=== PATIENT | male | born 1950 | race Caucasian/White ===

== ENCOUNTER 2020-10-09 09:08 | Outpatient (CLI) | payer MEDICARE, OTHER, SELFPAY ==
--- NOTE | ~2020-10-09 | US_ITS ---
EXAMINATION: [facility] EXAM DATE: 10/09/2020 09:40 INDICATION: Z13.6 - Encounter for screening for cardiovascular disorders. TECHNIQUE: Multiple grayscale and Doppler images of the abdominal aorta were obtained (by a technolog ist who performed the scan) and subsequently reviewed. There is no prior study for comparison. FINDINGS: The abdominal aorta is normal in caliber as are the iliac arteries. There is mild scattered arteriosc lerotic disease. No evidence of retroperitoneal lymphadenopathy. IMPRESSION: Mild abdominal aortic arteriosclerosis. Normal caliber. Reviewed, dictated and finalized at location A.
== END 2020-10-09 09:09 | disposition home or self-care (01) ==
LOC: ANHIMG 09:09
PROVIDERS: PCP Family Medicine; Visit Provider Family Medicine
DX: Z13.6 Encounter for screening for cardiovascular disorders (principal)
CPT/HCPCS: 76706

== ENCOUNTER → 2021-08-14 13:52 | Outpatient (CLI) | payer MEDICARE, SELFPAY ==
--- NOTE | ~2021-08-14 | XR_ITS ---
EXAMINATION: XR knee LT 3V EXAM DATE: 08/14/2021 14:18 INDICATION: M25.562 - Pain in left knee. TECHNIQUE: Three projections of the left knee. There is no prior study for comparison. FINDINGS: No evidence osteochondral defect or joint body in the left knee joint. Segment dictated patella versus old chronic superolateral patellar fracture (less likely). Small joint effusion. Dense SFA, popliteal arterial sclerosis. Mild tricompartmental left knee osteoarthritis. IMPRESSION: Small left knee joint effusion. Chronic findings above. Reviewed, dictated and finalized at location G.
== END ==
PROVIDERS: Visit Provider Family Medicine
DX: M17.12 Unilateral primary osteoarthritis, left knee (principal); M25.462 Effusion, left knee
CPT/HCPCS: 73562

== ENCOUNTER 2021-12-18 23:25 | Emergency (ER) | payer MEDICARE, SELFPAY ==
--- NOTE | ~2021-12-18 | CT_ITS ---
EXAMINATION: CT abdomen pelvis w con DATE: 12/19/2021 00:43 INDICATION: Periumbilical abdominal pain with nausea and vomiting TECHNIQUE: Computed tomography (CT) of the abdomen and pelvis was performed with 100 mL Omnipaque-300 intravenous contrast. Automated exposure control and iterative reconstruction technique were employe d. The dose-length product was 1277.63 mGy-cm. COMPARISON: 09/02/2014 FINDINGS: Mild emphysema and mild dependent atelectasis in the bilateral lung bases. Calcite left lower lobe no dules and calcified left hilar lymph nodes consistent with old granulomatous disease. A few prominent but still normal-sized bilateral hilar lymph nodes which are likely reactive. Mild cardiomegaly. Ath erosclerotic coronary artery calcifications and change of prior median sternotomy and coronary artery bypass grafting. No pericardial effusion. There is fluid within the distal esophagus extending into a small sliding-type hiatal hernia suggesting reflux. There is some wall thickening the distal esopha jeff consistent with esophagitis likely related to reported vomiting. There is a gastric ring finger o n the stomach just below the anupam of the diaphragm. 2.5 cm calcified gallstone within the partially d ecompressed gallbladder. Liver, spleen, pancreas and bilateral adrenal glands are normal. There are a couple 1-2 mm nonobstructing left renal stones. No hydronephrosis. Right kidney is normal. Bladder i s normal. Normal appendix. Postoperative change of prior ventral hernia mesh repair. There is mild co lonic diverticulosis with a sigmoid and descending colon predominance. There is no adjacent inflamma tory change to suggest diverticulitis. There are few fluid-filled but not frankly dilated loops of sm all bowel in the central and lower abdomen. This extends to a transition point along the ventral alvin ia mesh repair between a loop filled with pseudo feces suggesting delayed transit and the more distal decompressed small bowel. There is calcified atherosclerosis of the aorta and many of the other chelo ariadna. No free intraperitoneal gas or fluid. No pathologically enlarged abdominal or pelvic lymphadeno peri. Small fat-containing right inguinal hernia. Moderate left and mild to moderate right hip osteo arthritis. Small region of osteonecrosis at the anterosuperior left femoral head. IMPRESSION: 1. Fluid-filled but not likely dilated small bowel with scattered feces noted transition point to dec ompressed bowel which suggests either early or partial small bowel obstruction. 2. Small sliding-type hiatal hernia extending cephalad to a gastric ring positioned just below the le adriana of the anupam of the diaphragm. 3. Fluid in the distal esophagus where there is mild wall thickening consistent with likely esophagit is related to either reflux or reported vomiting. 4. Cholelithiasis. 5. A couple nonobstructing 1-2 mm left renal stones. 6. Cardiomegaly. 7. Mild diverticulosis. 6. Mild likely reactive bilateral hilar lymphadenopathy. 7. Small fat-containing right inguinal hernia. 8. Small region of osteonecrosis at the left femoral head. Reviewed, dictated and finalized at location A. IMPRESSION: 1. Fluid-filled but not likely dilated small bowel with scattered feces noted t ransition point to decompressed bowel which suggests either early or partial sm all bowel obstruction. 2. Small sliding-type hiatal hernia extending cephalad to a gastric ring positi oned just below the level of the anupam of the diaphragm. 3. Fluid in the distal esophagus where there is mild wall thickening consistent with likely esophagitis related to either reflux or reported vomiting. 4. Cholelithiasis. 5. A couple nonobstructing 1-2 mm left renal stones. 6. Cardiomegaly. 7. Mild diverticulosis. 6. Mild
[2021-12-18 23:36] VITALS: BP 144/71; PULSE 81; RESP 18; TEMP 36.7; O2SAT 98
[2021-12-19 00:06] LABS: Basophils Percent Auto 0.1 % (0.2-1.2); Eosinophils Absolute Auto 0.1 K/mm3 (0-0.3); Eosinophils Percent Auto 1.6 % (0-4.4); Hematocrit 45.1 % (42.0-52.0); Hemoglobin 14.3 g/dL (14.0-18.0); Immature Granulocyte Absolute 0.03 K/mm3 (0.00-0.031); Immature Granulocyte Percent A 0.3 % (0-0.5); Lymphocytes Absolute Auto 1.15 K/mm3 (0.9-3.2); Lymphocytes Percent Auto 13.1 % (18.3-44.2); Mean Corpuscular HGB Conc 31.7 g/dl (32-36); Mean Corpuscular Volume 97.8 fl (80-100); Mean Platelet Volume 10.4 fl (7.4-10.4); Monocytes Absolute Auto 0.7 K/mm3 (0.1-0.6); Monocytes Percent Auto 8.4 % (2.6-8.5); Neutrophils Absolute Auto 6.7 K/mm3 (1.3-6.7); Neutrophils Percent Auto 76.5 % (45.5-73.1); Platelet Count Result 248 k/mm3 (150-375); Red Blood Count 4.61 M/mm3 (4.6-6.20); Red Cell Distribution Width 14.7 % (11.5-14.5); White Blood Count 8.8 K/mm3 (4.5-10.0)
--- NOTE | 2021-12-19 00:09 | ECG_ITS ---
Measurements Intervals [place] Rate: 66 P: -11 FL: 160 QRS: 1 QRSD: 93 T: 54 QT: 413 QTc: 436 Interpretive Statements SINUS RHYTHM INCOMPLETE RIGHT BUNDLE BRANCH BLOCK LEFT VENTRICULAR HYPERTROPHY BORDERLINE ECG Electronically Signed On 12-19-2021 7:29:57 CDT by Navdeep Yu D.O.
[2021-12-19 00:18] LABS: Alanine Aminotransferase 32 U/L (6-50); Albumin Level 4.8 g/dL (3.5-5.1); Alkaline Phosphatase 73 U/L (38-126); Anion Gap 12 mmol/L (8-16); Aspartate Amino Transferase 28 U/L (17-59); Bilirubin,Total 1.5 mg/dL (0.2-1.3); Blood Urea Nitrogen 14 mg/dL (9-20); Calcium 9.8 mg/dL (8.4-10.2); Carbon Dioxide 28 mmol/L (22-30); Chloride 104 mmol/L (98-107); Estimated CRCL calculation 54 ml/min; Estimated Glomerular Filt Rate 54; Glucose 145 mg/dL (65-110); Lipase 44 U/L (23-300); Potassium 3.7 mmol/L (3.4-5.0); Sodium 144 mmol/L (137-145)
[2021-12-19] MEDS: ONDANSETRON INJ 4 MG/2 ML VIAL IV PUSH (00:20)
[2021-12-19] MEDS: FAMOTIDINE 20 MG/2 ML VIAL IV PUSH (00:21)
[2021-12-19 02:12] LABS: Appearance Urine Clear (Clear); Bilirubin Urine Negative (Negative); Blood Urine Negative (Negative); Color Urine Yellow (Yellow); Glucose Urine UA Negative (Negative); Ketones Urine Negative (Negative); Leukocyte Esterase Ur Negative LEU/UL (Negative); Nitrate Urine Negative (Negative); Protein Urine Negative (Negative); Urobilinogen Urine 0.2 mg/dL (<2.0)
--- NOTE | 2021-12-19 02:20 | ED.ABDPAIN ---
HPI - Abdominal Pain General Chief Complaint: Abdominal Pain Stated Complaint: abd pain Time Seen by Provider: 12/18/21 23:41 History of Present Illness HPI narrative: Patient states he has had 1-2 days of nausea and vomiting, and abdominal pain with difficulty passing stool and gas the last day. Last meal was fried rice yesterday which he thinks caused something to stick, denies any chest pain or difficulty breathing. Denies fevers/chills. Pain around periumbilical region which does not radiate, no current pain at this time. Related Data Home Medications Medication Instructions Recorded Confirmed aspirin 81 mg tablet,delayed 81 mg PO DAILY 04/08/19 10/08/21 release cholecalciferol (vitamin D3) 25 2,000 unit PO DAILY 04/08/19 10/08/21 mcg (1,000 unit) capsule Allergies Allergy/AdvReac Type Severity Reaction Status Date / Time KARSTEN Inhibitors Allergy Unknown coughing Verified 12/18/21 23:39 and change of voice lisinopril AdvReac Intermediate COUGHING, Verified 12/18/21 23:39 VOICE CHANGE-MED CHANGED Review of Systems Review of Systems: CONST: No fever. HEENT: No sore throat C/V: No chest pain RESP: No cough GI: Reports abdominal pain, nausea, vomiting : No dysuria. M/S: No joint pain. SKIN: No rash. NEURO: [No headache or focal numbness or weakness] PSYCH: [No depression] [facility] Past Medical History Medical History Atherosclerosis of coronary artery bypass graft(s) without angina pectoris CAD (coronary artery disease) Cough Degenerative joint disease of knee Effusion, left knee History of kidney stones HTN (hypertension) Hypertensive heart disease without congestive heart failure IFG (impaired fasting glucose) Left knee pain Mixed hyperlipidemia Obesity [place] (myocardial infarction) Surgical History Surgical History History of hernia repair Hx of CABG Family History Family History Sibling Asthma Family history of rheumatoid arthritis Father Cerebrovascular accident Family history of dementia Mother Family history of coronary artery disease Social History Social History Smoking packs per day: 1.5 Smoking cigarettes per day: 30.0 Years smoked: 16 Smoking pack-years: 24.00 Smoking status: Former smoker Tobacco type: cigarettes Second hand tobacco smoke exposure: No Smoking end date: 05/25/78 Alcohol intake: current Drinks per week: 8 Substance use: never Substance use type: does not use Gender identity (if verbalized by the patient): Male Exam Narrative: EXAMINATION OF ORGAN SYSTEMS/BODY AREAS: Constitutional: Vital signs per nursing GENERAL:[No acute distress, non-toxic appearing.] HEAD: Normal with no signs of head trauma. EYES: EOMI, conjunctiva normal ENT: Hearing grossly intact LUNGS: Nonlabored breathing. HEART: [Regular rate and rhythm] ABD: [Soft], [minimally tender to palpation periumbilical]; abdominal distension EXT: Normal range of motion SKIN: [No rashes or lesions.] NEURO: [Alert and oriented x 3. No gross focal sensory or strength deficits.] PSYCH: Normal affect Course Vital Signs Vital signs: Vital Signs Temperature 98.0 F 12/18/21 23:36 Pulse Rate 81 12/18/21 23:36 Respiratory Rate 18 12/18/21 23:36 Blood Pressure 144/71 H 12/18/21 23:36 Pulse Oximetry 98 12/18/21 23:36 Oxygen Delivery Room Air 12/18/21 23:36 Temperature 98.0 F 12/18/21 23:36 Pulse Rate 81 12/18/21 23:36 Respiratory Rate 18 12/18/21 23:36 Blood Pressure 144/71 H 12/18/21 23:36 Pulse Oximetry 98 12/18/21 23:36 Oxygen Delivery Room Air 12/18/21 23:36 MDM - Abdominal Pain MDM Narrative Medical decision making narrative: 71-year-old male presenting with nausea and vomiti
[2021-12-19 02:21] LABS: Mucus Urine Few /lpf; RBC Urine 0-2 /hpf (0-2); Squamous Epithelial Cell Urine Rare /hpf (Few); WBC Urine 0-3 /hpf
[2021-12-19 02:26] LABS: Add Urine Microscopic? NO
[2021-12-19 08:18] LABS: SARS-CoV-2 RNA PCR Negative
== END 2021-12-19 02:28 | disposition left against medical advice (07) ==
PROVIDERS: Emergency Provider Emergency Medicine; PCP Family Medicine
DX: K20.90 Esophagitis, unspecified without bleeding (principal); K56.609 Unspecified intestinal obstruction, unspecified as to partial versus complete obstruction; Z20.822 Contact with and (suspected) exposure to COVID-19; I25.10 Atherosclerotic heart disease of native coronary artery without angina pectoris; I11.9 Hypertensive heart disease without heart failure; E78.2 Mixed hyperlipidemia; I25.2 Old myocardial infarction; E66.9 Obesity, unspecified; Z68.32 Body mass index [BMI] 32.0-32.9, adult; Z87.442 Personal history of urinary calculi; Z79.82 Long term (current) use of aspirin; Z87.891 Personal history of nicotine dependence
CPT/HCPCS: 36415; 74177; 80053; 81003; 83690; 85025; 93005; 96374; 96375; 99284; C9803; J2405; Q9967; U0003; U0005

== ENCOUNTER 2021-12-19 03:02 | Inpatient (IN) | payer MEDICARE, SELFPAY ==
[2021-12-19] VITALS (8 sets, daily range): BP systolic 117–153; BP diastolic 63–79; PULSE 46–76; RESP 14–19; TEMP 36.4–36.8; O2SAT 97–100
--- NOTE | ~2021-12-19 | XR_ITS ---
EXAMINATION: XR UGI water soluble w sbs DATE: 12/19/2021 11:23 INDICATION: Small bowel obstruction TECHNIQUE: The patient drank water-soluble contrast. A instrument repair technician radiograph of the abdomen and pelvis was obtained. Conventional risk uptake spot radiographs of the esophagus, stomach, and proximal small rené wel were obtained. Additional overhead radiographs were obtained during the transit through the small bowel. Spot fluoroscopic images of the small bowel were obtained upon contrast reaching the cecum. Fluoroscopy exposure time was 2.5 minutes. A total of 611 fluoroscopic images and 9 overhead radiogra phs were obtained. COMPARISON: CT dated 12/19/2021 FINDINGS: Initial instrument repair technician radiographs demonstrate multiple metallic coils related to a ventral hernia mesh repair which project over the mid to right side of the lower abdomen. Small amount of residual excreted con trast from the prior CT in the bladder. No dilated loops of gas-filled bowel to suggest obstruction. The esophagus is normal without mass or stricture. Esophageal motility is normal. There is a small sl iding-type hiatal hernia position cephalad to a gastric ring which is near the level of the diaphragm . There was no gastroesophageal reflux with provocative maneuvers. The stomach and proximal small bow el are normal. Median sternotomy wires and mediastinal surgical clips are seen, likely from prior cor onary artery bypass grafting. Transit time from the stomach to proximal colon was approximately 1 hour. There is normal caliber and mucosal fold pattern throughout the small bowel. Terminal ileum is normal. Large calcified gallston e in the right upper quadrant. IMPRESSION: 1. Essentially normal small bowel follow-through with resolution of prior likely early or partial sma ll bowel obstruction. 2. Small sliding-type hiatal hernia positioned cephalad to a gastric band located just below the leve l of the diaphragm. 3. Postoperative change of prior ventral hernia mesh repair. 4. Cholelithiasis. Reviewed, dictated and finalized at location A. IMPRESSION: 1. Essentially normal small bowel follow-through with resolution of prior likel y early or partial small bowel obstruction. 2. Small sliding-type hiatal hernia positioned cephalad to a gastric band locat ed just below the level of the diaphragm. 3. Postoperative change of prior ventral hernia mesh repair. 4. Cholelithiasis.
--- NOTE | 2021-12-19 03:20 | ED.ABDPAIN ---
HPI - Abdominal Pain General Chief Complaint: Abdominal Pain Stated Complaint: abd pain, signed out AMA before Time Seen by Provider: 12/19/21 03:09 History of Present Illness HPI narrative: 71-year-old male who had been seen earlier today and diagnosed with SBO, left AGAINST MEDICAL ADVICE to take his home but returned for admission. No new changes. Related Data Home Medications Medication Instructions Recorded Confirmed aspirin 81 mg tablet,delayed 81 mg PO DAILY 04/08/19 10/08/21 release cholecalciferol (vitamin D3) 25 2,000 unit PO DAILY 04/08/19 10/08/21 mcg (1,000 unit) capsule Allergies Allergy/AdvReac Type Severity Reaction Status Date / Time KARSTEN Inhibitors Allergy Unknown coughing Verified 12/18/21 23:39 and change of voice lisinopril AdvReac Intermediate COUGHING, Verified 12/18/21 23:39 VOICE CHANGE-MED CHANGED Review of Systems Review of Systems: CONST: No fever. HEENT: No sore throat C/V: No chest pain RESP: No cough GI: Reports abdominal pain, nausea, vomiting, constipation : No dysuria. M/S: No joint pain. SKIN: No rash. NEURO: [No headache or focal numbness or weakness] PSYCH: [No depression] PMFSH Past Medical History Medical History Atherosclerosis of coronary artery bypass graft(s) without angina pectoris CAD (coronary artery disease) Cough Degenerative joint disease of knee Effusion, left knee History of kidney stones HTN (hypertension) Hypertensive heart disease without congestive heart failure IFG (impaired fasting glucose) Left knee pain Mixed hyperlipidemia Obesity [place] (myocardial infarction) Surgical History Surgical History History of hernia repair Hx of CABG Family History Family History Sibling Asthma Family history of rheumatoid arthritis Father Cerebrovascular accident Family history of dementia Mother Family history of coronary artery disease Social History Social History Smoking packs per day: 1.5 Smoking cigarettes per day: 30.0 Years smoked: 16 Smoking pack-years: 24.00 Smoking status: Former smoker Tobacco type: cigarettes Second hand tobacco smoke exposure: No Smoking end date: 05/25/78 Alcohol intake: current Drinks per week: 8 Substance use: never Substance use type: does not use Gender identity (if verbalized by the patient): Male Exam Narrative: EXAMINATION OF ORGAN SYSTEMS/BODY AREAS: Constitutional: Vital signs per nursing GENERAL:[No acute distress, non-toxic appearing.] HEAD: Normal with no signs of head trauma. EYES: EOMI, conjunctiva normal ENT: Hearing grossly intact LUNGS: Nonlabored breathing. HEART: [Regular rate and rhythm] ABD: [Soft], minimally [tender to palpation], distended EXT: Normal range of motion SKIN: [No rashes or lesions.] NEURO: [Alert and oriented x 3. No gross focal sensory or strength deficits.] PSYCH: Normal affect Course Vital Signs Vital signs: Vital Signs Temperature 98.1 F 12/19/21 03:04 Pulse Rate 76 12/19/21 03:04 Respiratory Rate 19 12/19/21 03:04 Blood Pressure 126/71 12/19/21 03:04 Pulse Oximetry 98 12/19/21 03:04 Oxygen Delivery Room Air 12/19/21 03:04 Temperature 98.0 F 12/19/21 03:18 Pulse Rate 61 12/19/21 03:18 Respiratory Rate 15 12/19/21 03:18 Blood Pressure 121/73 12/19/21 03:18 Pulse Oximetry 97 12/19/21 03:18 Oxygen Delivery Room Air 12/19/21 03:18 MDM - Abdominal Pain MDM Narrative Medical decision making narrative: 71yoM presents for adm for SBO; VS and IV placed, fluids started. D/w hospitalist for admission; consult to surgeon (had d/w Dr Kincaid several hours ago) placed. Discharge Plan Discharge Clinical Impression: SBO (small bowel obstruction
--- NOTE | 2021-12-19 03:51 | PM.IMHP ---
H&P: HPI History of Present Illness Date/Time: 12/19/21 03:51 Chief Complaint: CONSTIPATION Narrative: this is a 71-year-old male with past medical history significant for hypertension, coronary artery disease status post coronary artery bypass graft x4 vessel disease, hypertension, chronic kidney disease, impaired fasting glucose, obesity, mixed hyperlipidemia. Patient presents to the emergency room due to abdominal distention bloating, nausea, dry heaving, has had a small bowel movements. preliminary workup was significant for CT of abdomen and pelvis with a small bowel obstruction. Patient is been admitted for further evaluation management and treatment. Review of Systems Review of Systems: Bloating, poor appetite, dry heaving, nausea. Constitutional: Constitutional: Denies chills, Denies fever(s), Denies malaise, Denies night sweats and Denies weakness Eyes: Eyes: Denies change in vision ENT: Denies dysphagia, Denies vertigo, Denies dizziness and Denies odynophagia PMFSH Past Medical History Medical History Atherosclerosis of coronary artery bypass graft(s) without angina pectoris CAD (coronary artery disease) Cough Degenerative joint disease of knee Effusion, left knee History of kidney stones HTN (hypertension) Hypertensive heart disease without congestive heart failure IFG (impaired fasting glucose) Left knee pain Mixed hyperlipidemia Obesity [place] (myocardial infarction) Surgical History Surgical History History of hernia repair Hx of CABG Family History Family History Sibling Asthma Family history of rheumatoid arthritis Father Cerebrovascular accident Family history of dementia Mother Family history of coronary artery disease Social History Social History Smoking packs per day: 1.5 Smoking cigarettes per day: 30.0 Years smoked: 16 Smoking pack-years: 24.00 Smoking status: Former smoker Tobacco type: cigarettes Second hand tobacco smoke exposure: No Smoking end date: 05/25/78 Alcohol intake: current Drinks per week: 8 Substance use: never Substance use type: does not use Gender identity (if verbalized by the patient): Male Meds Home Medications and Allergies Home Medications Medication Instructions Recorded Confirmed Type aspirin 81 mg tablet,delayed 81 mg PO DAILY 04/08/19 10/08/21 History release cholecalciferol (vitamin D3) 25 2,000 unit PO DAILY 04/08/19 10/08/21 History mcg (1,000 unit) capsule atorvastatin 40 mg tablet 40 mg PO DAILY #90 tabs 10/14/21 Rx losartan 100 mg tablet 100 mg PO DAILY #90 tabs 10/14/21 Rx metoprolol tartrate 50 mg tablet 50 mg PO Q12H #180 tabs 10/14/21 Rx Allergies Allergy/AdvReac Type Severity Reaction Status Date / Time KARSTEN Inhibitors Allergy Unknown coughing Verified 12/18/21 23:39 and change of voice lisinopril AdvReac Intermediate COUGHING, Verified 12/18/21 23:39 VOICE CHANGE-MED CHANGED Vital Signs Vital Signs - 24 hr 12/19/21 03:04 12/19/21 03:18 Temperature 98.1 F 98.0 F Pulse Rate 76 61 Respiratory Rate 19 15 Blood Pressure 126/71 121/73 Pulse Oximetry 98 97 Oxygen Delivery Room Air Room Air
[2021-12-19] MEDS: LACTATED RINGERS 1,000 ML 125 ML IV CONT (04:00)
--- NOTE | 2021-12-19 05:30 | PM.IMHP ---
H&P: HPI History of Present Illness Date/Time: 12/19/21 05:30 Chief Complaint: Constipation Narrative: This is a 71-year-old male with past medical history significant for hypertension, coronary artery disease status post coronary artery bypass graft x4 vessel disease, hypertension, chronic kidney disease, impaired fasting glucose, obesity, mixed hyperlipidemia.? Patient presents to the emergency room due to abdominal distention bloating, nausea, dry heaving,? has had a small bowel movements. preliminary workup was significant for CT of abdomen and pelvis with a small bowel obstruction.? Patient is been admitted for further evaluation management and treatment. Review of Systems Review of Systems: bloating, dry heaving, abdominal distension, constipation, passing small amounts of stool. Constitutional: Constitutional: Denies chills, Denies fever(s), Denies malaise and Denies weakness Eyes: Eyes: Denies change in vision ENT: Denies dysphagia, Denies dizziness and Denies odynophagia Cardiovascular: Cardiovascular: Denies chest pain, Denies syncope, Denies irregular heart rhythm, Denies lightheadedness and Denies palpitations Respiratory: Respiratory: Denies change in phlegm color, Denies chest congestion, Denies excessive phlegm production, Denies pain on inspiration and Denies dyspnea Gastrointestinal: Gastrointestinal: Reports abdominal pain, Denies melena, Denies hematochezia, Denies coffee ground emesis, Reports constipation, Denies dyspepsia, Denies heartburn, Denies diarrhea, Reports nausea and Denies vomiting Genitourinary: Genitourinary: Denies dysuria Musculoskeletal: Musculoskeletal: Denies back pain, Denies joint swelling and Denies muscle weakness Integumentary/Breasts: Skin/Breast: Reports system reviewed and no additional complaints, except as docu, Reports as per HPI and Denies rash Psychiatric: Psychiatric: Reports no additional psychiatric complaints and Reports as per HPI Endocrine: Endocrine: Denies cold intolerance, Denies fatigue, Denies flushing, Denies heat intolerance, Denies polyphagia, Denies polydipsia and Denies palpitations Allergic/Immunologic: Allergic/Immunologic: Reports no additional allergic/immunologic complaints and Reports as per HPI PMFSH Past Medical History Medical History Atherosclerosis of coronary artery bypass graft(s) without angina pectoris CAD (coronary artery disease) Cough Degenerative joint disease of knee Effusion, left knee History of kidney stones HTN (hypertension) Hypertensive heart disease without congestive heart failure IFG (impaired fasting glucose) Left knee pain Mixed hyperlipidemia Obesity [place] (myocardial infarction) Surgical History Surgical History History of hernia repair Hx of CABG Family History Family History Sibling Asthma Family history of rheumatoid arthritis Father Cerebrovascular accident Family history of dementia Mother Family history of coronary artery disease Social History Social History Smoking packs per day: 1.5 Smoking cigarettes per day: 30.0 Years smoked: 16 Smoking pack-years: 24.00 Smoking status: Former smoker Tobacco type: cigarettes Second hand tobacco smoke exposure: No Smoking end date: 05/25/78 Alcohol intake: current Drinks per week: 8 Substance use: never Substance use type: does not use Gender identity (if verbalized by the patient): Male Meds Home Medications and Allergies Home Medications Medication Instructions Recorded Confirmed Type aspirin 81 mg tablet,delayed 81 mg PO DAILY 04/08/19 10/08/21 History release cholecalciferol (vitamin D3) 25 2,000 unit PO DAILY 04/08/19 10/08/21 History mcg (1,000 unit) capsule atorvastatin 40 mg tablet 40 mg PO DAILY
--- NOTE | 2021-12-19 06:06 | ADMGEN ---
This patient, Erickson Bustamante, was admitted to 3 [facility] Surg Room 315-02. Patient/family oriented to hospital policies and general routines including ID bracelet, bed and alarms, visiting hours, pain management, procedures, bathroom and other care routines, personal items, smoking policy, room service/diet, and visiting hours. Information on how to activate the Rapid Response Team has been discussed. Patient/Family are encouraged to report perceived risks to care and to ask questions if they do not understand what they are told or what they should do.
--- NOTE | 2021-12-19 09:01 | PM.CNGS ---
Assessment and Plan Assessment and plan (1) SBO (small bowel obstruction): Code(s): K56.609 - Unspecified intestinal obstruction, unspecified as to partial versus complete obstruction Status: Acute Assessment and Plan: Patient presented with evidence of a small bowel obstruction on CT and left AMA from the ER. When he returned, symptoms were improving and NG tube was deferred. When seen this morning, he is having no abdominal pain or nausea, and his abdominal exam is benign. Dr. Kincaid has reviewed his CT with the Radiologist and we have discussed his case. It appears he may have had an intraabdominal adhesion from the mesh that was causing this issue. We will get a Gastrografin upper GI small bowel follow through this morning to further evaluate the small bowel obstruction. If the contrast moves through without an obstruction, then we can start advancing his diet. If there is evidence of a small bowel obstruction, then we will plan to place an NG tube under fluoroscopy to initiate conservative management with NG decompression and bowel rest. (2) CAD (coronary artery disease): Code(s): I25.10 - Atherosclerotic heart disease of [place] coronary artery without angina pectoris Status: Acute (3) HTN (hypertension): Code(s): I10 - Essential (primary) hypertension Status: Acute Assessment and Plan: Will resume home medications if upper GI small bowel series shows no small bowel obstruction. (4) Obesity (BMI 30-39.9): Code(s): E66.9 - Obesity, unspecified Status: Acute (5) History of repair of hiatal hernia: Code(s): Z98.890 - Other specified postprocedural states; Z87.19 - Personal history of other diseases of the digestive system Status: Acute Assessment and Plan: Patient underwent a hiatal hernia repair in the 's with a ring device placed on the distal esophagus. On the CT, it is evidence that this ring has migrated down the stomach and is in the location of a gastric band. Plan I have discussed the patient's case and plan of care with Dr. Kincaid. History of Present Illness Consult details Consult date: 12/19/21 Reason for consult: other (Small-bowel obstruction) Requesting physician: Ana Barron MD Narrative: This is a 71-year-old male with a history of coronary artery disease, hypertension, and hyperlipidemia, who presented to the emergency department for evaluation of abdominal pain. He reportedly had a hiatal hernia repair in the with a band placed around the distal esophagus. He then developed a hernia and had an incisional hernia repair in the . He denies any known history small-bowel obstructions in the past. Two night ago, he had eaten Turkish for dinner. He woke up the next morning feeling well. He ate the leftover Turkish around 10:00 a.m.. Shortly after eating, he developed upper abdominal pain. Initially, this was mild and cramping in nature. He reports the pain would come and go in waves. Throughout the afternoon, his abdominal pain migrated to his central abdomen and began to worsen. He developed nausea with dry heaving in the evening. Due to the worsening pain he decided to present to the ER for evaluation. Workup showed findings of an early versus partial small bowel obstruction on CT. Incidentally noted was a small sliding hiatal hernia and it is evident that the ring from his previous hiatal hernia repair has migrated down and is in the position of a gastric band. Also noted was a softer diet is, cholelithiasis, left renal stones that were nonobstructing, cardiomegaly, diverticulosis, small fat containing right inguinal hernia, mild likely reactive bilateral hilar lymphadenopathy, and small region of osteonecrosis at left femoral head. The ER physician contacted our service regarding consultation for the small-bowel obstruction. The patient then decided to leave AMA to take his home and reportedly shortly returned about a 1
[2021-12-19] MEDS: PANTOPRAZOLE SODIUM IV 40 MG VIAL IV PUSH (14:39)
[2021-12-19] MEDS: ASPIRIN 81 MG ENTERIC TABLET PO (14:39)
[2021-12-19] MEDS: METOPROLOL TARTRATE 50 MG TAB PO ×2 (14:40→21:35)
[2021-12-19] MEDS: LOSARTAN POTASSIUM 100 MG TABLET PO (14:40)
--- NOTE | 2021-12-19 16:14 | PM.IMPN ---
Progress Note: A&P Assessment and Plan (1) SBO (small bowel obstruction): Code(s): K56.609 - Unspecified intestinal obstruction, unspecified as to partial versus complete obstruction Status: Acute (2) Esophagitis: Code(s): K20.90 - Esophagitis, unspecified without bleeding Status: Acute (3) Obesity: Code(s): E66.9 - Obesity, unspecified Status: Acute (4) CAD (coronary artery disease): Code(s): I25.10 - Atherosclerotic heart disease of [place] coronary artery without angina pectoris Status: Acute (5) Degenerative joint disease of knee: Qualifiers: Osteoarthritis type: primary Laterality: left Qualified Code(s): M17.12 - Unilateral primary osteoarthritis, left knee Code(s): M17.10 - Unilateral primary osteoarthritis, unspecified knee Status: Acute (6) HTN (hypertension): Code(s): I10 - Essential (primary) hypertension Status: Acute Plan small-bowel obstruction with abdominal pain and distension left AMA from the ER. Later returned. With symptoms improving NG was deferred. Gastrografin upper GI series this a.m. with no further obstruction. Started on a diet and advance further. If remains stable discharge in the morning Coronary artery disease Hypertension History of hiatal hernia repair in 80s status post CABG CKD stage 3 Hypertension Obesity Hyperlipidemia DVT prophylaxis Code status full code Subjective Date/time seen: 12/19/21 16:14 Interval history: HPI:This is a 71-year-old male with past medical history significant for hypertension, coronary artery disease status post coronary artery bypass graft x4 vessel disease, hypertension, chronic kidney disease, impaired fasting glucose, obesity, mixed hyperlipidemia.? Patient presents to the emergency room due to abdominal distention bloating, nausea, dry heaving,? has had a small bowel movements. preliminary workup was significant for CT of abdomen and pelvis with a small bowel obstruction.? Patient is been admitted for further evaluation management and treatment. 12/19/2021 patient seen and examined. Reviewed Labs. Feeling better. Had multiple bowel movement today Review of Systems Review of Systems: All systems reviewed & are unremarkable except as noted in HPI and below Exam Narrative: GENERAL: The patient is well developed, not in acute distress HEENT: Nonicteric sclerae, PERRLA, EOMI. Oropharynx clear. Moist mucous membranes. Conjunctivae appear well perfused. CHEST: Chest wall is nontender. HEART: Regular rate and rhythm without murmur, rubs, or gallops LUNGS: Clear to auscultation bilaterally. no respiratory distress ABDOMEN: Soft, positive bowel sounds, distended, non-tender, no organomegaly. SKIN: No rash, no excessive bruising, petechiae, or purpura. NEUROLOGIC: Cranial nerves II-XII intact, alert and oriented x 3, no gross motor deficits EXTREMITIES: no edema, cyanosis or clubbing Objective Data Vital Signs Vital Signs: Vital Signs - 24 hr 12/19/21 03:04 12/19/21 03:18 12/19/21 04:03 Temperature 98.1 F 98.0 F Pulse Rate 76 61 63 Respiratory Rate 19 15 17 Blood Pressure 126/71 121/73 122/79 Pulse Oximetry 98 97 99 Oxygen Delivery Room Air Room Air 12/19/21 06:00 Temperature 98.2 F Pulse Rate 62 Respiratory Rate 18 Blood Pressure 153/75 H Pulse Oximetry 98 Oxygen Delivery Meds/Results Medications: Active Medications Generic Name Dose Route Start Last Admin Trade Name Freq PRN Reason Stop Dose Admin Aspirin 81 mg 12/19/21 09:00 12/19/21 14:39 Aspirin 81 Mg Enteric Tablet PO 81 mg DAILY JV Administration Atorvastatin Calcium 40 mg 12/19/21 21:00 Atorvastatin 40 Mg Tablet PO HS JV Lactated Ringer's 1,000 mls @ 80 mls/hr 12/19/21 03:20 12/19/21 14:39 Lr - Lactated Ringers Iv IV CONT 80 mls/hr .[id number] JV Infusion Acetaminophen 1,000 mg in 100 mls @ 400 mls/hr 12/19/21 12:55 Ofirm
[2021-12-19] MEDS: LACTATED RINGERS 1,000 ML 80 ML IV CONT (16:33)
[2021-12-19] MEDS: CHOLECALCIFEROL 1,000 UNITS TABLET 2000 UNITS PO (21:35)
[2021-12-19] MEDS: ATORVASTATIN 40 MG TABLET PO (21:35)
[2021-12-20 05:54] LABS: Basophils Percent Auto 0.2 % (0.2-1.2); Eosinophils Absolute Auto 0.3 K/mm3 (0-0.3); Eosinophils Percent Auto 5.4 % (0-4.4); Hematocrit 41.3 % (42.0-52.0); Immature Granulocyte Absolute 0.02 K/mm3 (0.00-0.031); Immature Granulocyte Percent A 0.3 % (0-0.5); Lymphocytes Absolute Auto 1.15 K/mm3 (0.9-3.2); Mean Corpuscular HGB Conc 31.5 g/dl (32-36); Mean Corpuscular Volume 98.6 fl (80-100); Mean Platelet Volume 10.2 fl (7.4-10.4); Monocytes Absolute Auto 0.6 K/mm3 (0.1-0.6); Neutrophils Absolute Auto 3.6 K/mm3 (1.3-6.7); Neutrophils Percent Auto 63.1 % (45.5-73.1); Platelet Count Result 194 k/mm3 (150-375); Red Blood Count 4.19 M/mm3 (4.6-6.20); Red Cell Distribution Width 14.8 % (11.5-14.5); White Blood Count 5.7 K/mm3 (4.5-10.0)
[2021-12-20 06:00] VITALS: BP 117/72; PULSE 43; RESP 16; TEMP 36.1; O2SAT 96
[2021-12-20] MEDS: LACTATED RINGERS 1,000 ML 80 ML IV CONT (06:29)
[2021-12-20 08:16] VITALS: O2SAT 96
[2021-12-20 08:50] LABS: Alanine Aminotransferase 27 U/L (6-50); Albumin Level 3.9 g/dL (3.5-5.1); Alkaline Phosphatase 57 U/L (38-126); Anion Gap 9 mmol/L (8-16); Aspartate Amino Transferase 30 U/L (17-59); Bilirubin,Total 1.8 mg/dL (0.2-1.3); Blood Urea Nitrogen 15 mg/dL (9-20); Calcium 9.3 mg/dL (8.4-10.2); Carbon Dioxide 25 mmol/L (22-30); Chloride 106 mmol/L (98-107); Estimated CRCL calculation 59 ml/min; Estimated Glomerular Filt Rate 60; Glucose 98 mg/dL (65-110); Magnesium 2.1 mg/dL (1.6-2.3); Potassium 4.1 mmol/L (3.4-5.0); Sodium 140 mmol/L (137-145)
[2021-12-20 09:19] VITALS: PULSE 51
[2021-12-20] MEDS: PANTOPRAZOLE SODIUM IV 40 MG VIAL IV PUSH (09:20)
[2021-12-20] MEDS: ASPIRIN 81 MG ENTERIC TABLET PO (09:20)
[2021-12-20] MEDS: LOSARTAN POTASSIUM 100 MG TABLET PO (09:20)
[2021-12-20 09:52] LABS: EDCOVIDSCREEN Negative (Negative)
--- NOTE | 2021-12-20 12:09 | PM.DS ---
DS: Admitting Diagnosis Discharge Date 11/30/2021 Admitting Diagnosis Abdominal pain DS: Discharge Diagnosis Discharge Diagnosis (1) SBO (small bowel obstruction): Code(s): K56.609 - Unspecified intestinal obstruction, unspecified as to partial versus complete obstruction Status: Acute (2) Esophagitis: Code(s): K20.90 - Esophagitis, unspecified without bleeding Status: Acute (3) Obesity: Code(s): E66.9 - Obesity, unspecified Status: Acute (4) CAD (coronary artery disease): Code(s): I25.10 - Atherosclerotic heart disease of [place] coronary artery without angina pectoris Status: Acute (5) Degenerative joint disease of knee: Qualifiers: Osteoarthritis type: primary Laterality: left Qualified Code(s): M17.12 - Unilateral primary osteoarthritis, left knee Code(s): M17.10 - Unilateral primary osteoarthritis, unspecified knee Status: Acute (6) HTN (hypertension): Code(s): I10 - Essential (primary) hypertension Status: Acute Plan # abdominal pain with nausea vomiting: CT with fluid filled but not likely dilated small bowel with scattered feces noted transition point to decompressed bowel which suggest either early or partial small bowel obstruction. There was findings of small hiatal hernia sliding type cephalad to the gastric ring positions is below the level of the anupam of the diaphragmatic. There also fluid in the distal esophagus where there is some mild wall thickening consistent with likely esophagitis related to either reflux or reported vomiting. He initially left AMA from the ER but later returned for admission. His symptoms were already improving and hence NG was deferred. He was kept NPO and given IV fluid and analgesics. Improved significantly and next a Gastrografin upper GI series was done which ruled out any obstruction ongoing. He was started on diet and was advanced as tolerated which he did. He also continued to have bowel movement with resolution of his abdominal pain. He is okay by General surgery for discharge and follow-up as an outpatient basis. 1-2 mm left renal stones noted done CT Cholelithiasis noted on CT asymptomatic Is small region of osteonecrosis at the left femoral head Coronary artery disease Hypertension History of hiatal hernia repair in 80s status post CABG CKD stage 3 Hypertension Obesity Hyperlipidemia DVT prophylaxis Code status full code DS: Summary Hospital Course Hospital Course: See above Time Spent with Patient Time attestation: Total time spent providing and/or coordinating discharge services: Exam Narrative: GENERAL: The patient is well developed, not in acute distress HEENT: Nonicteric sclerae, PERRLA, EOMI. Oropharynx clear. Moist mucous membranes. Conjunctivae appear well perfused. CHEST: Chest wall is nontender. HEART: Regular rate and rhythm without murmur, rubs, or gallops LUNGS: Clear to auscultation bilaterally. no respiratory distress ABDOMEN: Soft, positive bowel sounds, distended, non-tender, no organomegaly. SKIN: No rash, no excessive bruising, petechiae, or purpura. NEUROLOGIC: Cranial nerves II-XII intact, alert and oriented x 3, no gross motor deficits EXTREMITIES: no edema, cyanosis or clubbing DS: Data Data Completed and Pending Labs on day of discharge: Labs from last 24 hours 12/20/21 12/20/21 12/20/21 09:23 09:23 08:28 WBC RBC Hgb Hct MCV MCH MCHC RDW Plt Count MPV Immature Gran % (Auto) Neut % (Auto) Lymph % (Auto) Sherman % (Auto) Eos % (Auto) Baso % (Auto) Lymph # (Auto) Sherman # (Auto) Eos # (Auto) Baso # (Auto) Abs Immat Gran (auto) Absolute Neuts (auto) Absolute Nucleated RBC Nucleated RBC % Sodium 140 Potassium 4.1 Chloride 106 Carbon Dioxide 25 Anion Gap 9 BUN 15 Creatinine 1.20 Estim Creat Clear Calc 59 Estimated GFR 60 G
--- NOTE | 2021-12-20 12:39 | PM.PNGS ---
Progress Note: A&P Assessment and Plan (1) SBO (small bowel obstruction): Code(s): K56.609 - Unspecified intestinal obstruction, unspecified as to partial versus complete obstruction Status: Acute Assessment and Plan: resolved clinically and radiographically. Okay to have solid food and discharged today. Discussed this with hospitalist. No surgical follow-up needed unless problems in the future. Subjective Subjective Date/Time Seen: 12/20/21 12:39 Patient reports: no new complaints, feels better, tolerating liquids well and bowel movement Review of Systems Review of Systems: All systems reviewed & are unremarkable except as noted in HPI and below ( HPI and those items noted below) Constitutional: Constitutional: Denies chills, Denies fever(s) and Reports increased appetite Cardiovascular: Cardiovascular: Denies chest pain, Denies diaphoresis, Denies dyspnea and Denies paroxysmal nocturnal dyspnea Respiratory: Respiratory: Denies chest congestion, Denies cough and Denies dyspnea Gastrointestinal: Gastrointestinal: Reports as per HPI, Denies abdominal pain, Denies bloating, Denies dyspepsia, Denies heartburn, Denies nausea and Denies vomiting Integumentary/Breasts: Skin/Breast: Denies lesions and Denies rash Exam Const: General: healthy appearing, comfortable, alert and awake Nutritional Appearance: overweight Orientation/consciousness: No confusion GI: Inspection: non-distended and scar GI Palp: Yes Soft to palpation and No Tenderness to palpation present (GI) Auscultation: normoactive bowel sounds Objective Data Vital Signs Vital Signs: Vital Signs - 24 hr 12/19/21 14:00 12/19/21 20:00 12/19/21 21:35 Temperature 36.4 C Pulse Rate 56 L 56 L 56 L Respiratory Rate 14 14 Blood Pressure 126/72 Pulse Oximetry 100 100 Oxygen Delivery Room Air 12/19/21 22:00 12/20/21 06:00 12/20/21 08:16 Temperature 36.6 C 36.1 C L Pulse Rate 46 L 43 L Respiratory Rate 18 16 Blood Pressure 117/63 117/72 Pulse Oximetry 98 96 96 Oxygen Delivery Room Air 12/20/21 09:19 12/20/21 08:00 Temperature Pulse Rate 51 L Respiratory Rate Blood Pressure Pulse Oximetry Oxygen Delivery Room Air Intake/Output Intake/Output: Intake & Output 12/17/21 12/18/21 12/19/2129/22 23:59 23:59 23:59 23:59 Intake Total 1760 1870 Output Total 200 Balance 1560 1870 Meds/Results Medications: Active Medications Generic Name Dose Route Start Last Admin Trade Name [place] PRN Reason Stop Dose Admin Aspirin 81 mg 12/19/21 09:00 12/20/21 09:20 Aspirin 81 Mg Enteric Tablet PO 81 mg DAILY JV Administration Atorvastatin Calcium 40 mg 12/19/21 21:00 12/19/21 21:35 Atorvastatin 40 Mg Tablet PO 40 mg HS JV Administration Lactated Ringer's 1,000 mls @ 80 mls/hr 12/19/21 03:20 12/20/21 09:25 Lr - Lactated Ringers Iv IV CONT Not Given .[id number] [facility] Acetaminophen 1,000 mg in 100 mls @ 400 mls/hr 12/19/21 12:55 Ofirmev 1,000 Mg Ivpb IVPB 12/20/21 12:54 Q6H PRN Pain Rated 4-6 Losartan Potassium 100 mg 12/19/21 09:00 12/20/21 09:20 Losartan Potassium 100 Mg Tablet PO 100 mg DAILY JV Administration Metoprolol Tartrate 50 mg 12/19/21 13:55 12/20/21 09:19 Metoprolol Tartrate 50 Mg Tab PO Not Given Q12HR [facility] Ondansetron HCl 4 mg 12/19/21 03:16 Ondansetron Inj 4 Mg/2 Ml Vial IV PUSH Q4H PRN Nausea Pantoprazole Sodium 40 mg 12/19/21 13:00 12/20/21 09:20 Pantoprazole Sodium Iv 40 Mg Vial IV PUSH 40 mg QAM JV Administration Vitamin D 2,000 units 12/19/21 21:00 12/19/21 21:35 Cholecalciferol 1,000 Units Tablet PO 2,000 units HS JV Administration Radiology Results: ITS Impressions Upper GI Series 12/19/21 11:25 IMPRESSION: 1. Essentially normal small bowel follow-through with resolution of prior likely early or partial small bowel obstruction. 2. Small sliding-type h
== END 2021-12-20 15:34 | disposition home or self-care (01) | DRG 390 ==
LOC: ANHED 03:22 → ANH3MEDSUR 04:16
PROVIDERS: Admitting Provider Internal Medicine; Emergency Provider Emergency Medicine; PCP Family Medicine; Visit Provider Internal Medicine
DX: K56.600 Partial intestinal obstruction, unspecified as to cause (principal); Z20.822 Contact with and (suspected) exposure to COVID-19; K20.90 Esophagitis, unspecified without bleeding; K80.20 Calculus of gallbladder without cholecystitis without obstruction; K40.90 Unilateral inguinal hernia, without obstruction or gangrene, not specified as recurrent; K44.9 Diaphragmatic hernia without obstruction or gangrene; K57.90 Diverticulosis of intestine, part unspecified, without perforation or abscess without bleeding; I13.10 Hypertensive heart and chronic kidney disease without heart failure, with stage 1 through stage 4 chronic kidney disease, or unspecified chronic kidney disease; I25.10 Atherosclerotic heart disease of native coronary artery without angina pectoris; E66.9 Obesity, unspecified; E78.2 Mixed hyperlipidemia; I25.2 Old myocardial infarction; M17.12 Unilateral primary osteoarthritis, left knee; N18.30 Chronic kidney disease, stage 3 unspecified; N20.0 Calculus of kidney; R59.1 Generalized enlarged lymph nodes; Z87.891 Personal history of nicotine dependence; Z68.33 Body mass index [BMI] 33.0-33.9, adult; Z79.82 Long term (current) use of aspirin; Z87.442 Personal history of urinary calculi; Z95.1 Presence of aortocoronary bypass graft
CPT/HCPCS: 36415; 74240; 74248; 80053; 83735; 85025; 87426; 99285; A9270; C9113; C9803; J7120